=== PATIENT | female | born 1995 | race Caucasian/White ===

== ENCOUNTER 2021-07-28 15:03 | Emergency (ER) | payer OTHER ==
[~2021-07-28] VITALS: Ht 157.5 cm; Wt 85.7 kg
[2021-07-28 15:09] VITALS: BP 158/89
--- NOTE | 2021-07-28 15:18 | NUR ---
Dr. Marie is evaluating patient at Chair A. Patient to wait in lobby.
--- NOTE | 2021-07-28 15:25 | NUR ---
Dr. Marie is evaluating patient in triage room with ultrasound machine
[2021-07-28 15:32] VITALS: BP 158/89
--- NOTE | 2021-07-28 15:32 | NUR ---
Patient does not wish to proceed with medical care recommended by DR CONTRERAS. Patient given information related to possible complications, up to and including , which could occur as a result of leaving hospital at this time. Patient verbalizes understanding of risks involved leaving against medical advice. Patient has signed AMA form.
== END 2021-07-28 15:32 | disposition left against medical advice (07) ==
LOC: MED 15:03
DX: M54.9 Dorsalgia, unspecified (principal); V03.10XA Pedestrian on foot injured in collision with car, pick-up truck or van in traffic accident, initial encounter; Y93.89 Activity, other specified; Y92.89 Other specified places as the place of occurrence of the external cause; Y99.8 Other external cause status
CPT/HCPCS: 99285

== ENCOUNTER 2022-06-02 13:44 | Emergency (ER) | payer OTHER ==
[~2022-06-02] VITALS: Ht 157.5 cm; Wt 74.8 kg
[2022-06-02 13:44] VITALS: BP 124/70
--- NOTE | 2022-06-02 13:44 | NUR ---
PT TO ER BED 6 VIA [facility] AND [facility]
--- NOTE | 2022-06-02 13:45 | NUR ---
PT ON 5150 HOLD PER [place] [employer] OFFICER LENY COPY OF ORDER GIVEN TO PD , ORIGINAL IN CHART
--- NOTE | 2022-06-02 14:05 | NUR ---
26YO FEMALE PT BIBA AND PD FROM STREETS DUE TO 5051. PER PD, PT WAS FOUND WALKING IN STREETS THROUGH/AGAINST TRAFFIC. PD UNSURE OF ANY DRUG USE. UPON ARRIVAL, PT AAOX1 TO NAME W/ DELAYED- EXCESSIVE MUMBLING. PT UNABLE TO KEEP EYES OPEN, AROUSABLE TO TOUCH. PT UNCOOPERATIVE W/ ASSESMENT, DENIES PAIN. PT SKIN PRESENTS SOILED, FLUSHED AND WARM TO TOUCH. NO VISIBLE DISTRESS. RESPIRATIONS EVEN AND UNLABORED. POTENTIAL HARMFUL ITEMS REMOVED FROM ROOM . PT CHANGED INTO GOWN. PT IN VIEW, BED AT LOWEST POSITION, BED RAILS UP X2. HX: UNOBTAINBLE ALLERGIES: UNOBTAINABLE
[2022-06-02] MEDS ORDERED: HALOPERIDOL IM 5 MG/ML VIAL IVP ONE (14:10)
[2022-06-02] MEDS ORDERED: diphenhydrAMINE 50 MG/ML VIAL IVP ONE (14:10)
--- NOTE | 2022-06-02 14:12 | NUR ---
PT BELONGINGS PLACED IN PB BAG. GIVEN TO SECURITY
[2022-06-02 14:27] LABS: BASOPHILS % (AUTO) 0.3 % (0.0-2.0); EOSINOPHILS # (AUTO) 0.1 K/uL (0-0.4); EOSINOPHILS % (AUTO) 0.8 % (0.0-4.0); HEMATOCRIT 39.9 % (36-48); HEMOGLOBIN 13.2 g/dL (12.0-16.0); LYMPHOCYTES # (AUTO) 3.7 K/uL (2.5-16.5); LYMPHOCYTES % (AUTO) 32.1 % (20.5-51.1); MEAN CORPUSCULAR HEMOGLOBIN 29 pg (27-31); MEAN CORPUSCULAR HGB CONC 33 g/dL (33-37); MEAN CORPUSCULAR VOLUME 88.4 fL (80-94); MONOCYTES # (AUTO) 1.1 K/uL (0.8-1.0); NEUTROPHILS # (AUTO) 6.5 K/uL (1.8-7.7); NEUTROPHILS % (AUTO) 56.8 % (42.2-75.2); PLATELET COUNT (AUTO) 253 K/uL (140-450); RED BLOOD CELL COUNT(AUTO) 4.52 MIL/uL (4.20-5.40); RED CELL DISTRIBUTION WIDTH 14.3 % (11.6-13.7); WHITE BLOOD COUNT (AUTO) 11.4 K/uL (4.8-10.8)
[2022-06-02 14:42] LABS: ANION GAP 17.8 (8-16); ASPARTATE AMINOTRANSFERASE 17 U/L (15-37); CARBON DIOXIDE 24.6 mmol/L (21-32); CHLORIDE 101 mmol/L (98-107); CREATININE 0.7 mg/dL (0.6-1.3); GFR ARICAN-AMERICAN 132 mL/min (>90); GLUCOSE 89 mg/dL (74-106); POTASSIUM 3.4 mmol/L (3.5-5.1); SODIUM SERUM 140 mmol/L (136-145); TOTAL BILIRUBIN 0.3 mg/dL (0.0-1.0); UREA NITROGEN, BLOOD 14 mg/dL (7-18)
[2022-06-02 14:45] LABS: SALICYLATE < 2.8 mg/dL (2.8-20.0)
[2022-06-02 14:46] LABS: ACETAMINOPHEN < 0.5 ug/ml (10-30)
--- NOTE | 2022-06-02 14:58 | NUR ---
PT SWABBED FOR COVID(CLINT/ NOVEL). WALKED TO LAB
[2022-06-02 15:39] LABS: BARBITURATE, URINE NEGATIVE ng/ml (NEG <=200); BENZODIAZEPINE, URINE NEGATIVE ng/mL (NEG <=200); CANNABINOID, URINE NEGATIVE ng/mL (NEG <=50); COCAINE, URINE NEGATIVE ng/mL (NEG <=300); OPIATE, URINE NEGATIVE ng/mL (NEG <=2000); PHENCYCLIDINE SCREEN,URINE NEGATIVE ng/mL (NEG <=25)
[2022-06-02] MEDS ORDERED: LACTATED RINGERS 1,000 ML IV ONE (16:50)
--- NOTE | 2022-06-02 18:50 | NUR ---
PT SWABBED FOR COVID(CLINT/ NOVEL) . SPECIMENS HANDED TO ASSISTANT TO THE DIRECTOR ELIJAH
--- NOTE | 2022-06-02 18:53 | NUR ---
PT PULLED IV OUT. PT WET LINEN CHANGED.
--- NOTE | 2022-06-02 19:30 | NUR ---
REPORT GIVEN TO MIRTHA LORENZ. ALL QUESTIONS ANSWERED. TRANSFER OF CARE AT THIS TIME
--- NOTE | 2022-06-02 20:00 | NUR ---
RESTING IN BED WITH EYES CLOSED. RESPIRATIONS REGULAR AND UNLABORED
--- NOTE | 2022-06-02 21:54 | NUR ---
CALL FROM [facility] [employer]LE[employer] REQUESTING CART SET UP FOR TESTING. CART AT BEDSIDE
--- NOTE | 2022-06-02 22:27 | NUR ---
TELEPSYCH DOCTOR SPEAKING WITH PATIENT
--- NOTE | 2022-06-03 01:19 | NUR ---
pt appears to be resting with her eyes closed. opens to sound. all needs met at this time. bed locked in lowest position,side rails x2 for safety.
--- NOTE | 2022-06-03 03:10 | NUR ---
Patient appears to be resting comfortably in bed. Vital Signs within normal limits. Respirations even and unlabored.
--- NOTE | 2022-06-03 06:00 | NUR ---
RESTING COMFORTABLY WITH EYES CLOSED, AWAKENS WITH EASE FOR VS THEN RETURNS TO SLEEP
[2022-06-03 06:40] VITALS: BP 124/68
--- NOTE | 2022-06-03 06:40 | NUR ---
Patient discharged with v/s stable. Written and verbal after care instructions given and explained. Patient verbalized understanding. Ambulatory with steady gait. All questions addressed prior to discharge. Advised to follow up with PMD.
== END 2022-06-03 06:40 | disposition home or self-care (01) ==
LOC: MED 13:44
DX: F99 Mental disorder, not otherwise specified (principal); Z20.822 Contact with and (suspected) exposure to COVID-19; F19.90 Other psychoactive substance use, unspecified, uncomplicated
CPT/HCPCS: 36415; 72170; 80053; 80305; 81002; 81025; 84702; 85025; 87426; 87635; 96361; 96374; 96375; 99285; C9803; G0480; G0482; J1200; J1630; J7120; Q0092; 93005; U0003